=== PATIENT | female | born 1940 | race Caucasian/White ===

== ENCOUNTER → 2016-10-13 | Outpatient (CLI) | payer MEDICARE, BC ==
[~2016-10-13] MED LIST: ASCO500C2 PO; ATEN25TA PO; CETI10TA18 PO; CHOL200012 PO; GABA300C10 PO; HYDR25TA6 PO; LACT1CAP20 PO; Optifiber PO
[2016-10-13 12:59] LABS: ASPARTATE AMINO TRANSFERASE 11 U/L (15-37); BLOOD UREA NITROGEN 13 mg/dL (7-18)
== END | disposition home or self-care (01) ==
LOC: STAR 11:22
PROVIDERS: ATTEND Surgery
DX: Z01.818 Encounter for other preprocedural examination (principal); R94.31 Abnormal electrocardiogram [ECG] [EKG]; C43.4 Malignant melanoma of scalp and neck; R79.1 Abnormal coagulation profile
CPT/HCPCS: 36415; 80053; 83615; 85025; 85610; 93005

== ENCOUNTER 2016-10-27 08:00 | Day surgery (SDC) | payer MEDICARE, BC ==
[~2016-10-27] VITALS: Ht 162.6 cm; Wt 78.6 kg
[2016-10-27] MEDS ORDERED: LACTATED RINGERS 1,000 ML IV SCH (08:53)
[2016-10-27 08:58] VITALS: BP 196/80
[2016-10-27] MEDS ORDERED: FENTANYL PF 250 MCG/5ML ONE (11:01)
[2016-10-27] MEDS ORDERED: OXYcodone 5 MG/5 ML ORAL.SOL UDC PO PRN (11:30)
[2016-10-27] MEDS ORDERED: ONDANSETRON 2MG/ML, 2ML IVPush PRN (11:30)
[2016-10-27] MEDS ORDERED: MEPERIDINE/PF 25MG/0.5ML IVPush PRN (11:30)
[2016-10-27] MEDS ORDERED: MIDAZOLAM 1 MG/ML, 2ML IV PRN (11:30)
[2016-10-27] MEDS ORDERED: FENTANYL PF 100 MCG/2ML IV PRN (11:30)
[2016-10-27] MEDS ORDERED: hydrALAzine 20 MG/ML, 1ML IV PRN (11:30)
[2016-10-27] MEDS ORDERED: LABETALOL 5MG/ML, 20ML IV PRN (11:30)
[2016-10-27] MEDS ORDERED: EPHEDRINE 50 MG/ML, 1ML IVPush PRN (11:30)
[2016-10-27] MEDS ORDERED: ACETAMINOPHEN 325 MG TABLET PO PRN (11:30)
[2016-10-27] MEDS ORDERED: METOPROLOL 1 MG/ML, 5ML IV PRN (11:30)
[2016-10-27] MEDS ORDERED: ALBUTEROL SULFATE 2.5 MG/3 ML NPPB PRN (11:30)
[2016-10-27] MEDS ORDERED: HYDROmorphone 1 MG/ML, 1ML IV PRN (11:30)
[2016-10-27] MEDS ORDERED: BUPIVACAINE/PF 0.5% ONE (12:00)
[2016-10-27] MEDS ORDERED: EPINEPHRINE 1 MG/ML, 1ML ONE (12:00)
[2016-10-27] MEDS ORDERED: BACITRACIN 50,000 UNIT ONE (12:00)
[2016-10-27] MEDS ORDERED: ROPIvacaine/PF 0.2%, 20 ML ONE (12:00)
[2016-10-27] MEDS ORDERED: BACITRACIN ZINC OINT 500U/GM, 0.9 GM ONE (12:00)
[2016-10-27] MEDS ORDERED: ROPIvacaine/PF 0.5%, 30 ML ONE (12:01)
[2016-10-27] MEDS ORDERED: MINERAL OIL 10 ML VIAL MC ONE (12:02)
[2016-10-27] MEDS ORDERED: ROCURONIUM 10 MG/ML ONE (12:32)
[2016-10-27] MEDS ORDERED: CEFAZOLIN 1,000 MG ONE (12:32)
[2016-10-27] MEDS ORDERED: ONDANSETRON 2MG/ML, 2ML ONE (12:32)
[2016-10-27] MEDS ORDERED: NEOSTIGMINE 1 MG/ML, 10ML ONE (12:32)
[2016-10-27] MEDS ORDERED: GLYCOPYRROLATE 0.2MG/1ML ONE (12:32)
[2016-10-27] MEDS ORDERED: DEXAMETHASONE 4 MG/ML, 1ML ONE (12:32)
[2016-10-27] MEDS ORDERED: PROPOFOL 10 MG/ML, 20ML ONE (12:32)
[2016-10-27] MEDS ORDERED: hydrALAzine 20 MG/ML, 1ML ONE (14:36)
[2016-10-27] MEDS ORDERED: ACETAMINOPHEN 650 MG/20.3 ML UDC ONE (14:36)
[2016-10-27] MEDS ORDERED: OXYcodone 5 MG/5 ML ORAL.SOL UDC ONE (14:36)
== END 2016-10-27 16:15 ==
LOC: OUT 08:00
PROVIDERS: ATTEND Plastic Surgery
DX: C43.4 Malignant melanoma of scalp and neck (principal); I48.91 Unspecified atrial fibrillation; E78.00 Pure hypercholesterolemia, unspecified; I10 Essential (primary) hypertension; Z87.39 Personal history of other diseases of the musculoskeletal system and connective tissue; Z85.828 Personal history of other malignant neoplasm of skin; Z98.49 Cataract extraction status, unspecified eye; Z98.890 Other specified postprocedural states; Z87.891 Personal history of nicotine dependence; Z72.89 Other problems related to lifestyle; Z88.1 Allergy status to other antibiotic agents
CPT/HCPCS: 14021; 78195; 88307; A9541; C1760; C9898; J0171; J0360; J0690; J1100; J2405; J2704; J2710; J3010; J3490; J2795

== ENCOUNTER → 2016-11-14 | Outpatient (CLI) | payer MEDICARE, BC | END | disposition home or self-care (01) | LOC: PETCFH 09:09 | PROVIDERS: ATTEND Anesthesiology Pain Medicine | DX: C43.4 Malignant melanoma of scalp and neck (principal) | CPT/HCPCS: 78816; A9552 ==

== ENCOUNTER → 2017-01-06 | Outpatient (CLI) | payer MEDICARE, BC ==
[~2017-01-06] MED LIST changes: -CHOL200012 PO; +CHOL200074 PO; +GADOBUTROL 7.5 MMOL/7.5 ML PFS ONE
== END | disposition home or self-care (01) ==
LOC: CFH 12:18
PROVIDERS: ATTEND Internal Medicine
DX: C43.4 Malignant melanoma of scalp and neck (principal); G31.9 Degenerative disease of nervous system, unspecified
CPT/HCPCS: 70553; A9585

== ENCOUNTER → 2017-01-12 | Outpatient (CLI) | payer MEDICARE, BC ==
[~2017-01-12] MED LIST changes: -GADOBUTROL 7.5 MMOL/7.5 ML PFS ONE
== END ==
LOC: ROC 08:33
PROVIDERS: ATTEND Radiology Radiation Oncology
DX: C43.4 Malignant melanoma of scalp and neck (principal); E78.5 Hyperlipidemia, unspecified; I48.91 Unspecified atrial fibrillation; I10 Essential (primary) hypertension; G62.9 Polyneuropathy, unspecified; Z85.820 Personal history of malignant melanoma of skin
CPT/HCPCS: G0463

== ENCOUNTER 2017-04-27 06:46 | Emergency (ER) | payer MEDICARE, BC ==
[~2017-04-27] VITALS: Ht 162.6 cm; Wt 78.4 kg
[2017-04-27 08:59] VITALS: BP 126/57
== END 2017-04-27 09:37 | disposition home or self-care (01) ==
LOC: ED 09:20
DX: J20.9 Acute bronchitis, unspecified (principal); I10 Essential (primary) hypertension
CPT/HCPCS: 71046; 93005; 99284

== ENCOUNTER → 2017-05-19 | Outpatient (CLI) | payer MEDICARE, BC ==
[~2017-05-19] MED LIST changes: +OMNIPAQUE 350 MG/ML, 100ML BOTTLE ONE
== END | disposition home or self-care (01) ==
LOC: CFH 12:12
PROVIDERS: ATTEND Internal Medicine
DX: C43.4 Malignant melanoma of scalp and neck (principal); R91.8 Other nonspecific abnormal finding of lung field; I70.0 Atherosclerosis of aorta
CPT/HCPCS: 71260; 74177; Q9967

== ENCOUNTER → 2017-05-25 | Outpatient (CLI) | payer MEDICARE, BC ==
[~2017-05-25] MED LIST changes: -OMNIPAQUE 350 MG/ML, 100ML BOTTLE ONE
== END | disposition home or self-care (01) ==
LOC: ROC 11:17
PROVIDERS: ATTEND Radiology Radiation Oncology
DX: Z08 Encounter for follow-up examination after completed treatment for malignant neoplasm (principal); C43.4 Malignant melanoma of scalp and neck
CPT/HCPCS: G0463

== ENCOUNTER → 2018-01-18 | Outpatient (CLI) | payer MEDICARE, BC | END | disposition home or self-care (01) | LOC: ROC 09:34 | PROVIDERS: ATTEND Radiology Radiation Oncology | DX: C43.4 Malignant melanoma of scalp and neck (principal) | CPT/HCPCS: G0463 ==

== ENCOUNTER → 2018-04-26 | Outpatient (CLI) | payer MEDICARE, BC ==
[~2018-04-26] MED LIST changes: +OMNIPAQUE 350 MG/ML, 100ML BOTTLE ONE
== END | disposition home or self-care (01) ==
LOC: CFH 10:07
PROVIDERS: ATTEND Internal Medicine
DX: C43.4 Malignant melanoma of scalp and neck (principal); D25.9 Leiomyoma of uterus, unspecified; I70.0 Atherosclerosis of aorta
CPT/HCPCS: 71260; 74177; Q9967

== ENCOUNTER → 2018-10-20 | Outpatient (CLI) | payer MEDICARE, BC ==
[~2018-10-20] MED LIST changes: +GADOBUTROL 10 MMOL/10 ML PFS ONE; -OMNIPAQUE 350 MG/ML, 100ML BOTTLE ONE
== END | disposition home or self-care (01) ==
LOC: CFH 12:26
PROVIDERS: ATTEND Internal Medicine
DX: C43.4 Malignant melanoma of scalp and neck (principal); I25.10 Atherosclerotic heart disease of native coronary artery without angina pectoris; K57.30 Diverticulosis of large intestine without perforation or abscess without bleeding; K57.10 Diverticulosis of small intestine without perforation or abscess without bleeding; I70.0 Atherosclerosis of aorta; M47.814 Spondylosis without myelopathy or radiculopathy, thoracic region; M85.80 Other specified disorders of bone density and structure, unspecified site
CPT/HCPCS: 70553; 71260; 74177; A9585

== ENCOUNTER → 2019-11-04 | Outpatient (CLI) | payer MEDICARE, BC ==
[~2019-11-04] MED LIST changes: -GADOBUTROL 10 MMOL/10 ML PFS ONE; +GADOTERATE 7.5 MMOL/15 ML SYR ONE; +OMNIPAQUE 350 MG/ML, 100ML BOTTLE ONE
== END | disposition home or self-care (01) ==
LOC: RAD 07:49
PROVIDERS: ATTEND Internal Medicine
DX: C43.4 Malignant melanoma of scalp and neck (principal); K57.10 Diverticulosis of small intestine without perforation or abscess without bleeding; M47.9 Spondylosis, unspecified
CPT/HCPCS: 70553; 71260; 74177; A9575; Q9967

== ENCOUNTER 2020-11-12 08:59 | Outpatient (CLI) | payer MEDICARE, BC ==
[~2020-11-12 08:59] MED LIST changes: -GADOTERATE 7.5 MMOL/15 ML SYR ONE; -OMNIPAQUE 350 MG/ML, 100ML BOTTLE ONE
[2020-11-12] MEDS ORDERED: OMNIPAQUE 350 MG/ML, 100ML BOTTLE ONE (10:39)
== END 2020-11-12 23:59 | disposition home or self-care (01) ==
LOC: CFH 08:59
PROVIDERS: ATTEND Internal Medicine
DX: C43.4 Malignant melanoma of scalp and neck (principal); K57.30 Diverticulosis of large intestine without perforation or abscess without bleeding; J98.4 Other disorders of lung
CPT/HCPCS: 71260; 74177; Q9967